=== PATIENT | female | born 1960 | race Hispanic/Latino ===

== ENCOUNTER 2017-06-25 07:43 | Outpatient (CLI) | payer OTHER ==
--- NOTE | 2017-06-25 08:01 | XRay Report ---
RIGHT WRIST RADIOGRAPHS INDICATION: Right wrist pain. COMPARISON: None similar at this institution. FINDINGS: AP, lateral and oblique right wrist radiographs, 4 projections demonstrate intact carpal rows and also remainder imaged bones. Unremarkable soft tissues. CONCLUSION: Normal right wrist radiographs, as described. Thank you for the opportunity to participate in this patient's care.
== END 2017-06-25 07:44 | disposition home or self-care (01) ==
LOC: SPVIMAG 07:43
PROVIDERS: ATTEND Orthopaedic Surgery
DX: M25.531 Pain in right wrist (principal)